=== PATIENT | male | born 1990 | race Caucasian/White ===

== ENCOUNTER 2020-06-17 16:22 | Emergency (ER) | payer OTHER ==
[~2020-06-17] VITALS: Ht 170.2 cm; Wt 98.9 kg
[2020-06-17 16:48] VITALS: Ht 170.2 cm; Wt 98.9 kg
[2020-06-17 19:36] VITALS: BP 126/80
== END 2020-06-17 19:36 | disposition home or self-care (01) ==
LOC: ED 16:22
DX: S93.401A Sprain of unspecified ligament of right ankle, initial encounter (principal); V49.49XA Driver injured in collision with other motor vehicles in traffic accident, initial encounter; Y93.I9 Activity, other involving external motion; Y92.488 Other paved roadways as the place of occurrence of the external cause; Y99.8 Other external cause status
CPT/HCPCS: J7030